=== PATIENT | female | born 1970 | race African-American/Black ===

== ENCOUNTER 2022-11-01 20:41 | Emergency (ER) | payer SELFPAY, OTHER ==
[2022-11-01] MEDS ORDERED: Ketorolac Tromethamine 30 MG/ML VIAL ONE (21:07)
== END 2022-11-01 21:50 | disposition home or self-care (01) ==
LOC: ERS 20:41
DX: M54.2 Cervicalgia (principal); M25.512 Pain in left shoulder; I10 Essential (primary) hypertension; E03.9 Hypothyroidism, unspecified; Z79.899 Other long term (current) drug therapy
CPT/HCPCS: 72040; 96372; J1885